=== PATIENT | male | born 1980 | race Hispanic/Latino ===

== ENCOUNTER 2016-11-22 17:10 | Emergency (ER) | payer MEDICAID ==
[2016-11-22 17:17] VITALS: RESP 20; TEMP 98.4; O2SAT 98
--- NOTE | 2016-11-22 19:11 | ED PDOC ---
HPI: General Adult Time Seen by Provider: 11/22/16 17:19 Chief Complaint (Nursing): Anxiety Chief Complaint (Provider): crisis History Per: Patient Additional Complaint(s): pt. into ER via EMS c/o anxiety and depression. states he is having issues at home. denies any suicidal/homicidal ideations. Past Medical History Reviewed: Historical Data, Nursing Documentation, Vital Signs Vital Signs: Last Vital Signs Temp 98.4 F 11/22/16 17:15 Pulse 110 H 11/22/16 17:15 Resp 20 11/22/16 17:15 BP 163/99 H 11/22/16 17:15 Pulse Ox 98 11/22/16 19:11 - Medical History PMH: Anxiety Denies: Diabetes, Hepatitis, HIV, HTN, Chronic Kidney Disease, Seizures, Sexually Transmitted Disease - Family History Family History: States: No Known Family Hx - Social History Current smoker - smoking cessation education provided: Yes Alcohol: Social Drugs: Denies - Allergies Allergies/Adverse Reactions: Allergies Allergy/AdvReac Type Severity Reaction Status Date / Time No Known Allergies Allergy Verified 11/22/16 17:14 Review of Systems ROS Statement: Except As Marked, All Systems Reviewed And Found Negative Psych: Positive for: Anxiety, Depression Physical Exam - Reviewed Nursing Documentation Reviewed: Yes Vital Signs Reviewed: Yes - Physical Exam Appears: Positive for: Well, Non-toxic, No Acute Distress Head Exam: Positive for: ATRAUMATIC, NORMAL INSPECTION, NORMOCEPHALIC Skin: Positive for: Normal Color, Warm, DRY Eye Exam: Positive for: EOMI, Normal appearance, PERRL Neck: Positive for: Normal, Painless ROM Cardiovascular/Chest: Positive for: Regular Rate, Rhythm Respiratory: Positive for: CNT, Normal Breath Sounds Gastrointestinal/Abdominal: Positive for: Normal Exam, Bowel Sounds, Soft. Negative for: Tenderness Extremity: Positive for: Normal ROM. Negative for: Tenderness Neurologic/Psych: Positive for: Alert, Oriented. Negative for: Motor/Sensory Deficits - ECG O2 Sat by Pulse Oximetry: 98 Medical Decision Making Medical Decision Making: pt seen and evaluated by telephone sex worker. ok for discharge. ED OBSERVATION Date of observation admission: 11/22/16 Time of observation admission: 19:11 - Observation admission statement Patient is being placed in observation because:: crisis - Goals of Observation Goals of observation are:: evaluation Disposition - Clinical Impression Clinical Impression: Anxiety attack - Patient ED Disposition Is Patient to be Admitted: No - Disposition Referrals: [facility] [Outside] Disposition: Routine/Home Disposition Time: 20:07 Condition: GOOD Instructions: Anxiety (ED)
[2016-11-22 20:31] VITALS: BP 143/87; PULSE 90
== END 2016-11-22 20:27 | disposition home or self-care (01) ==
LOC: H.ER 17:10
DX: F41.0 Panic disorder [episodic paroxysmal anxiety] (principal); F17.200 Nicotine dependence, unspecified, uncomplicated

== ENCOUNTER 2016-11-24 01:13 | Observation (INO) | payer MEDICAID ==
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
[2016-11-24 06:09] LABS: BASO # 0.1 K/uL (0.0-0.2); BASO % 0.7 % (0.0-2.0); EOS % 0.1 % (0.0-4.0); HEMATOCRIT 46.3 % (35.0-51.0); LYMPH # 1.3 K/uL (1.0-4.3); LYMPH % 13.2 % (20.0-40.0); MEAN CELL VOLUME 94.5 fl (80.0-94.0); MEAN CORPUSCULAR HEMOGLOBIN 31.3 pg (27.0-31.0); MEAN CORPUSCULAR HGB CONC 33.1 g/dL (33.0-37.0); MEAN PLATELET VOLUME 9.1 fl (7.2-11.7); MONO # 0.8 K/uL (0.0-0.8); MONO % 8.2 % (0.0-10.0); NEUT # 7.5 K/uL (1.8-7.0); NEUT % 77.8 % (50.0-75.0); RED CELL DISTRIBUTION WIDTH 12.7 % (11.5-14.5); WHITE BLOOD COUNT 9.6 K/uL (4.8-10.8)
--- NOTE | 2016-11-24 06:16 | ED PDOC ---
- Laboratory Results Result Diagrams: 11/24/16 05:58 11/24/16 05:58 - ECG O2 Sat by Pulse Oximetry: 98 Medical Decision Making Medical Decision Making: Patient s/o from Sherly Yepez PA-C at 0600 pending [facility] screening. Patient s/o to Dr. Connell at 0700 pending medical clearance for [facility] screening. Scribe Attestation: Documented by Lala Hancock acting as a scribe for Vianney Lea MD. Provider Scribe Attestation: All medical record entries made by the Scribe were at my direction and personally dictated by me. I have reviewed the chart and agree that the record accurately reflects my personal performance of the history, physical exam, medical decision making, and the department course for this patient. I have also personally directed, reviewed, and agree with the discharge instructions and disposition. Disposition - Clinical Impression Clinical Impression: Suicidal ideation - POA Present On Arrival: None - Disposition Disposition: Transfer of Care Disposition Time: 07:00 Condition: STABLE Patient Signed Over To: Marcus Connell Handoff Comments: pendingmed clearance and [facility] screening
[2016-11-24 06:21] LABS: ALB/GLOB RATIO 1.3 (1.0-2.1); ALCOHOL SERUM < 10 mg/dl (0-10); ALKALINE PHOSPHATASE 78 U/L (38-126); ALT/SGPT 50 U/L (21-72); AST/SGOT 117 U/L (17-59); BLOOD UREA NITROGEN 17 mg/dl (9-20); CARBON DIOXIDE 14 mmol/L (22-30); CHLORIDE 101 mmol/L (98-107); GFR AFRICAN-AMERICAN > 60; GLUCOSE,RANDOM 186 mg/dL (75-110); POTASSIUM 3.6 MMOL/L (3.6-5.0); SODIUM 144 mmol/l (132-148); TOTAL PROTEIN 8.6 G/DL (6.3-8.2)
[2016-11-24] MEDS ORDERED: Sodium Chloride 0.9% 1,000 ML IV STA ×2 (06:59→08:10)
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
[2016-11-24 07:14] LABS: GRANULAR CAST 1 /lpf (0-1); RBC URINE 2 /hpf (0-3); URINE BACTERIA RARE (<OCC); URINE BILIRUBIN NEGATIVE (NEGATIVE); URINE BLOOD NEGATIVE (NEGATIVE); URINE COLOR YELLOW (YELLOW); URINE GLUCOSE (UA) NEG (Normal); URINE KETONE TRACE mg/dL (NEGATIVE); URINE LEUKOCYTE ESTERASE NEG Leu/uL (Negative); URINE PROTEIN 100 mg/dL (NEGATIVE); URINE UROBILINOGEN 0.2-1.0 mg/dL (0.2-1.0); WBC URINE 5 /hpf (0-5)
--- NOTE | 2016-11-24 11:10 | RAD ---
HISTORY: clearance COMPARISON: 12/21/2015 FINDINGS: LUNGS: The lungs are well inflated and clear. PLEURA: No significant pleural effusion identified, no pneumothorax apparent. CARDIOVASCULAR: Normal. OSSEOUS STRUCTURES: No significant abnormalities. VISUALIZED UPPER ABDOMEN: Normal. OTHER FINDINGS: None. IMPRESSION: No active pulmonary disease.
[2016-11-24] MEDS: Sodium Chloride 0.9% 1,000 ML IV SCH ×2 (14:35→21:54)
--- NOTE | 2016-11-24 19:23 | CARD ---
APPROVED REPORT EKG Measurement Heart [id number] <Conclusion> Sinus tachycardia with short WA Left axis deviation Abnormal ECG
--- NOTE | 2016-11-24 19:47 | CP.PCM.CON ---
History of Present Illness - History of Present Illness History of Present Illness: I was asked to see patient by Vadim Melton APN and Dr Sidhu Patient is a 36 year old male with PMH psychiatric disorder admitted for palptitations. Patient is in the midst of a divorce and had a breakdown. He was to be admitted to psychiatry, patient was found to be tachycardic. He is seen on [facility]N. He is upset about his current situation but his outlook seems positive. Review of Systems - Constitutional Constitutional: absent: As Per HPI, Anorexia, Chills, Daytime Sleepiness, Excessive Sweating, Fatigue, Fever, Frequent Falls, Headache, Increased Appetite , Lethargy, Malaise, Night Sweats, Snoring, Sleep Apnea, Weight Gain, Weight Loss, Weakness, Other - EENT Eyes: absent: As Per HPI, Blind Spots, Blurred Vision, Change in Vision, Decreased Night Vision, Diplopia, Discharge, Dry Eye, Exophthalmos, Floaters, Irritation, Itchy Eyes, Loss of Peripheral Vision, Pain, Photophobia, Requires Corrective Lenses, Sees Flashes, Spots in Vision, Tunnel Vision, Other Visual Disturbances, Loss of Vision, Other Nose/Mouth/Throat: absent: As Per HPI, Epistaxis, Nasal Congestion, Nasal Discharge, Nasal Obstruction, Nasal Trauma, Nose Pain, Post Nasal Drip, Sinus Pain, Sinus Pressure, Bleeding Gums, Change in Voice, Dental Pain, Dry Mouth, Dysphagia, Halitosis, Hoarsness, Lip Swelling, Mouth Lesions, Mouth Pain, Odynophagia, Sore Throat, Throat Swelling, Tongue Swelling, Facial Pain, Neck Pain, Neck Mass, Other - Cardiovascular Cardiovascular: Rapid Heart Rate - Respiratory Respiratory: absent: As Per HPI, Cough, Dyspnea, Hemoptysis, Dyspnea on Exertion , Wheezing, Snoring, Stridor, Pain on Inspiration, Chest Congestion, Excessive Mucous Production, Change in Mucous Color, Pain with Coughing, Other - Gastrointestinal Gastrointestinal: absent: As Per HPI, Abdominal Pain, Belching, Bloating, Change in Bowel Habits, Change in Stool Character, Coffee Ground Emesis, Constipation, Cramping, Diarrhea, Dyspepsia, Dysphagia, Early Satiety, Excessive Flatus, Fecal Incontinence, Heartburn, Hematemesis, Hematochezia, Loose Stools, Melena, Nausea, Odynophagia, Temesmus, Vomiting, Other - Genitourinary Genitourinary: absent: As Per HPI, Change in Urinary Stream, Difficulty Urinating, Dysuria, Flank Pain, Hematuria, Pyuria, Nocturia, Urinary Incontinence, Urinary Frequency, Urinary Hesitance, Urinary Urgency, Voiding Freq/Small Amts, Freq UTI, Hx Renal/Bladder Calculi, Hx /Renal Surgery, Bladder Distension, Other - Musculoskeletal Musculoskeletal: absent: As Per HPI, Abnormal Gait, Arthralgias, Atrophy, Back Pain, Deformity, Joint Swelling, Limited Range of Motion, Loss of Height, Muscle Cramps, Muscle Weakness, Myalgias, Neck Pain, Numbness, Radiating Pain into Limb, Stiffness, Tingling, Other - Integumentary Integumentary: absent: As Per HPI, Acne, Alopecia, Bleeding Lesions, Change in Hair, Change in Nails, Change in Pigmentation, Changing Lesions, Dry Skin, Erythema, Furuncle, Hirsutism, Lesions, New Lesions, Non-Healing Lesions, Photosensitivity, Pruritus, Rash, Skin Pain, Skin Ulcer, Sores, Striae, Swelling , Unusual Bruising, Wounds, Jaundice, Other - Neurological Neurological: absent: As Per HPI, Abnormal Gait, Abnormal Hearing, Abnormal Movements, Abnormal Speech, Behavioral Changes, Burning Sensations, Confusion, Convulsions, Disequilibrium, Dizziness, Numbness, Focal Weakness, Frequent Falls , Headaches, Lack of Coordination, Loss of Vision, Memory Loss, Paresthesias, Radicular Pain, Restless Legs, Sensory Deficit, Syncope, Tingling, Tremor, Vertigo, Weakness, Other Visual Disturbances, Other - Psychiatric Psychiatric: Panic Attacks - Endocrine Endocrine: absent: As Per HPI, Change in Body Appearance, Change in Libido, Cold Intolorance, Deepening of Voice, Excessive Sweating, Fatigue, Flushing, Heat Intolorance, Increase in Ring/Shoe/Hat Size, Palpitations, Polydipsia, Polyphagia, Polyuria, Other - Hematologic/Lymphatic Hematologic: absent: As Per HPI, Easy Bleeding, Easy Bruising, Lymphadenopathy, Other Past Patient History - Infectious Disease Hx of Infectious Diseases: None - Past Medical History & Family History Past Medical History?: Yes - Past Social History Smoking Status: Light Smoker < 10 Cigarettes Daily - CARDIAC Hx Cardiac Disorders: No - PULMONARY Hx Respiratory Disorders: No - NEUROLOGICAL Hx Neurological Disorder: No - HEENT Hx HEENT Problems: No - RENAL Hx Chronic Kidney Disease: No - ENDOCRINE/METABOLIC Hx Endocrine Disorders: No - HEMATOLOGICAL/ONCOLOGICAL Hx Blood Disorders: No - INTEGUMENTARY Hx Dermatological Problems: No - MUSCULOSKELETAL/RHEUMATOLOGICAL Hx Musculoskeletal Disorders: No Hx Falls: No - GASTROINTESTINAL Hx Gastrointestinal Disorders: No - GENITOURINARY/GYNECOLOGICAL Hx Genitourinary Disorders: No - PSYCHIATRIC Hx Psychophysiologic Disorder: Yes Hx Depression: Yes Hx Substance Use: Yes - SURGICAL HISTORY Hx Surgeries: No - ANESTHESIA Hx Anesthesia: No Meds Allergies/Adverse Reactions: Allergies Allergy/AdvReac Type Severity Reaction Status Date / Time No Known Allergies Allergy Verified 11/22/16 17:14 - Medications Medications: Current Medications Sodium Chloride (Sodium Chloride 0.9%) 1,000 mls @ 125 mls/hr IV .[facility] Stop: 11/25/16 14:31 Last Admin: 11/24/16 14:35 Dose: 125 mls/hr Quetiapine Fumarate (Seroquel) 50 mg PO DAILY [facility] Last Admin: 11/24/16 18:38 Dose: 50 mg Physical Exam - Constitutional Appears: Non-toxic - Head Exam Head Exam: NORMAL INSPECTION - Eye Exam Eye Exam: Normal appearance - ENT Exam ENT Exam: Mucous Membranes Moist - Neck Exam Neck exam: Positive for: Normal Inspection - Respiratory Exam Respiratory Exam: NORMAL BREATHING PATTERN - Cardiovascular Exam Cardiovascular Exam: Tachycardia, REGULAR RHYTHM - GI/Abdominal Exam GI & Abdominal Exam: Normal Bowel Sounds - Rectal Exam Rectal Exam: Deferred - Extremities Exam Extremities exam: Positive for: normal inspection - Back Exam Back exam: NORMAL INSPECTION - Neurological Exam Neurological exam: Alert, Oriented x3 - Psychiatric Exam Psychiatric exam: Normal Affect - Skin Skin Exam: Normal Color Results - Vital Signs Recent Vital Signs: Last Vital Signs Temp 98.2 F 11/24/16 16:00 Pulse 108 H 11/24/16 16:03 Resp 18 11/24/16 16:03 BP 135/83 11/24/16 16:00 Pulse Ox 99 11/24/16 16:00 - Labs Result Diagrams: 11/25/16 07:00 11/25/16 07:00 - EKG Data EKG Interpreted by: Myself Assessment & Plan (1) Tachycardia Assessment and Plan: sinus, likely due to underlying stress. Improved with IV fluids. otherwise normal cardiac exam. Doubt underlying cardiac pathology. can check TSH. Status: Acute
[2016-11-25 04:27] VITALS: RESP 18
[2016-11-25] MEDS: Sodium Chloride 0.9% 1,000 ML IV SCH (06:06)
[2016-11-25 07:49] LABS: BASO % 0.8 % (0.0-2.0); EOS # 0.1 K/uL (0.0-0.7); EOS % 1.1 % (0.0-4.0); HEMATOCRIT 40.5 % (35.0-51.0); LYMPH # 1.8 K/uL (1.0-4.3); LYMPH % 30.9 % (20.0-40.0); MEAN CELL VOLUME 94.2 fl (80.0-94.0); MEAN CORPUSCULAR HEMOGLOBIN 30.9 pg (27.0-31.0); MEAN CORPUSCULAR HGB CONC 32.8 g/dL (33.0-37.0); MEAN PLATELET VOLUME 9.2 fl (7.2-11.7); MONO # 0.8 K/uL (0.0-0.8); MONO % 14.2 % (0.0-10.0); NEUT # 3.2 K/uL (1.8-7.0); RED CELL DISTRIBUTION WIDTH 12.7 % (11.5-14.5)
[2016-11-25 08:04] LABS: ALB/GLOB RATIO 1.3 (1.0-2.1); ALKALINE PHOSPHATASE 61 U/L (38-126); ALT/SGPT 57 U/L (21-72); AST/SGOT 130 U/L (17-59); BILIRUBIN,TOTAL 1.5 mg/dl (0.2-1.3); BLOOD UREA NITROGEN 10 mg/dl (9-20); CALCIUM 9.1 mg/dL (8.4-10.2); CARBON DIOXIDE 25 mmol/L (22-30); CHLORIDE 108 mmol/L (98-107); GFR AFRICAN-AMERICAN > 60; GLUCOSE,RANDOM 94 mg/dL (75-110); SODIUM 144 mmol/l (132-148); TOTAL PROTEIN 6.8 G/DL (6.3-8.2)
[2016-11-25 08:07] VITALS: BP 121/68; PULSE 73; TEMP 98.2; O2SAT 97
[2016-11-25 08:28] LABS: THYROID STIMULATING HORMONE 0.83 mIU/ML (0.46-4.68)
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
--- NOTE | 2016-11-25 10:12 | CP.PCM.DIS ---
Provider - Provider Date of Admission: 11/24/16 12:19 Attending physician: Jasmin Sidhu MD Primary care physician: Shady Morris MD Time Spent in preparation of Discharge (in minutes): 15 Hospital Course - Lab Results Lab Results: Most Recent Lab Values WBC 6.0 K/uL (4.8-10.8) 11/25/16 07:00 RBC 4.30 Mil/uL (4.40-5.90) L 11/25/16 07:00 Hgb 13.3 g/dL (12.0-18.0) D 11/25/16 07:00 Hct 40.5 % (35.0-51.0) 11/25/16 07:00 MCV 94.2 fl (80.0-94.0) H 11/25/16 07:00 MCH 30.9 pg (27.0-31.0) 11/25/16 07:00 MCHC 32.8 g/dL (33.0-37.0) L 11/25/16 07:00 RDW 12.7 % (11.5-14.5) 11/25/16 07:00 Plt Count 232 K/uL (130-400) 11/25/16 07:00 MPV 9.2 fl (7.2-11.7) 11/25/16 07:00 Neut % (Auto) 53.0 % (50.0-75.0) 11/25/16 07:00 Lymph % (Auto) 30.9 % (20.0-40.0) 11/25/16 07:00 [place] % (Auto) 14.2 % (0.0-10.0) H 11/25/16 07:00 Eos % (Auto) 1.1 % (0.0-4.0) 11/25/16 07:00 Baso % (Auto) 0.8 % (0.0-2.0) 11/25/16 07:00 Neut # 3.2 K/uL (1.8-7.0) 11/25/16 07:00 Lymph # 1.8 K/uL (1.0-4.3) 11/25/16 07:00 [place] # 0.8 K/uL (0.0-0.8) 11/25/16 07:00 Eos # 0.1 K/uL (0.0-0.7) 11/25/16 07:00 Baso # 0.0 K/uL (0.0-0.2) 11/25/16 07:00 Sodium 144 mmol/l (132-148) 11/25/16 07:00 Potassium 4.0 MMOL/L (3.6-5.0) 11/25/16 07:00 Chloride 108 mmol/L (98-107) H 11/25/16 07:00 Carbon Dioxide 25 mmol/L (22-30) 11/25/16 07:00 Anion Gap 15 (10-20) 11/25/16 07:00 BUN 10 mg/dl (9-20) 11/25/16 07:00 Creatinine 0.9 mg/dL (0.8-1.5) 11/25/16 07:00 Est GFR ( Amer) > 60 11/25/16 07:00 Est GFR (Non-Af Amer) > 60 11/25/16 07:00 Random Glucose 94 mg/dL (75-110) 11/25/16 07:00 Calcium 9.1 mg/dL (8.4-10.2) 11/25/16 07:00 Total Bilirubin 1.5 mg/dl (0.2-1.3) H 11/25/16 07:00 AST 130 U/L (17-59) H 11/25/16 07:00 ALT 57 U/L (21-72) 11/25/16 07:00 Alkaline Phosphatase 61 U/L (38-126) 11/25/16 07:00 Total Protein 6.8 G/DL (6.3-8.2) 11/25/16 07:00 Albumin 3.8 g/dL (3.5-5.0) 11/25/16 07:00 Globulin 3.0 gm/dL (2.2-3.9) 11/25/16 07:00 Albumin/Globulin Ratio 1.3 (1.0-2.1) 11/25/16 07:00 TSH 3rd Generation 0.83 mIU/ML (0.46-4.68) 11/25/16 07:00 Urine Color Yellow (YELLOW) 11/24/16 06:33 Urine Clarity Slighty-cloudy (Clear) 11/24/16 06:33 Urine pH 6.0 (5.0-8.0) 11/24/16 06:33 Ur Specific Spencer 1.021 (1.003-1.030) 11/24/16 06:33 Urine Protein 100 mg/dL (NEGATIVE) 11/24/16 06:33 Urine Glucose (UA) Neg mg/dL (Normal) 11/24/16 06:33 Urine Ketones Trace mg/dL (NEGATIVE) 11/24/16 06:33 Urine Blood Negative (NEGATIVE) 11/24/16 06:33 Urine Nitrate Negative (NEGATIVE) 11/24/16 06:33 Urine Bilirubin Negative (NEGATIVE) 11/24/16 06:33 Urine Urobilinogen 0.2-1.0 mg/dL (0.2-1.0) 11/24/16 06:33 Ur Leukocyte Esterase Neg [place]/uL (Negative) 11/24/16 06:33 Urine RBC (Auto) 2 /hpf (0-3) 11/24/16 06:33 Urine Microscopic WBC 5 /hpf (0-5) 11/24/16 06:33 Ur Squamous Epith Cells 2 /hpf (0-5) 11/24/16 06:33 Urine Bacteria Rare (<OCC) 11/24/16 06:33 Hyaline Casts 6-10 /hpf (0-2) H 11/24/16 06:33 Granular Casts (Auto) 1 /lpf (0-1) 11/24/16 06:33 Urine Opiates Screen Negative (NEGATIVE) 11/24/16 06:33 Urine Methadone Screen Negative (NEGATIVE) 11/24/16 06:33 Ur Barbiturates Screen Negative (NEGATIVE) 11/24/16 06:33 Ur Phencyclidine Scrn Negative (NEGATIVE) 11/24/16 06:33 Ur Amphetamines Screen Negative (NEGATIVE) 11/24/16 06:33 U Benzodiazepines Scrn Negative (NEGATIVE) 11/24/16 06:33 U Oth Cocaine Metabols Negative (NEGATIVE) 11/24/16 06:33 U Cannabinoids Screen Positive (NEGATIVE) H 11/24/16 06:33 Alcohol, Quantitative < 10 mg/dl (0-10) 11/24/16 05:58 Discharge Exam - Head Exam Head Exam: NORMAL INSPECTION Discharge Plan - Follow Up Plan Condition: STABLE Disposition: HOME/ ROUTINE Instructions: Stress (ED) Additional Instructions: Follow up as directed. final dx-tachycardia due to stress f/u rmg 2 dyas, rted prn, meds per med rec, hydration, repeat cmp 1 wk, alcohol cessation cleare dby psych and cardio Referrals: Shady Morris MD [Primary Care Provider] -
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
== END 2016-11-25 11:50 | disposition home or self-care (01) ==
LOC: H.ER 01:13 → UNDOADMOB 05:41 → H.EROBSV 05:41 → H.ERHOLD 11:47 → UNDOADMOB 11:47 → H.ERHOLD 12:19 → H.TEL 15:46
PROVIDERS: ADMIT Family Medicine; ATTEND Family Medicine
DX: F43.23 Adjustment disorder with mixed anxiety and depressed mood (principal); R45.851 Suicidal ideations; R00.0 Tachycardia, unspecified; F41.0 Panic disorder [episodic paroxysmal anxiety]; F17.210 Nicotine dependence, cigarettes, uncomplicated; Z78.1 Physical restraint status

== ENCOUNTER 2016-12-01 13:31 | Inpatient (IN) | payer MEDICAID ==
[2016-12-01] MEDS ORDERED: Sodium Chloride 0.9% 1,000 ML IV STA (14:48)
--- NOTE | 2016-12-01 14:53 | ED PDOC ---
HPI: General Adult Time Seen by Provider: 12/01/16 13:35 Chief Complaint (Nursing): Psychiatric Evaluation Chief Complaint (Provider): Suicidal Ideation History Per: Patient History/Exam Limitations: no limitations Have you had recent travel within the past 21 days to any of the following countries: [place], [place], [place] or [place]?: No Current Symptoms Are (Timing): Still Present Severity: Moderate Recently: Hospitalized Additional Complaint(s): Jonnathan Russ is a 36 year old male, with a past medical history of depression and anxiety, who presents to the emergency department via EMS, with complaints of wanting to harm himself. Patient states having a panic attack that was brought on by anxiety earlier today and verbalizes suicidal ideation without a plan. He reports the route of his stress deriving from being from his 5 months ago. Denies homicidal ideation, hallucinations, chest pain, shortness of breath, leg pain, hemoptysis, or a thyroid disorder. Of note, patient was admitted to this hospital last week for similar symptoms. PMD: [place] Past Medical History Reviewed: Historical Data, Nursing Documentation, Vital Signs Vital Signs: Last Vital Signs Temp 97.8 F 12/01/16 22:30 Pulse 96 H 12/01/16 22:30 Resp 20 12/01/16 22:30 BP 128/78 12/01/16 22:30 Pulse Ox 98 12/01/16 18:00 - Medical History PMH: Anxiety, Depression Denies: Diabetes, Hepatitis, HIV, HTN, Chronic Kidney Disease, Seizures, Sexually Transmitted Disease - Surgical History Surgical History: No Surg Hx - Family History Family History: States: Unknown Family Hx - Social History Alcohol: None Drugs: Cannabis - Home Medications Home Medications: Ambulatory Orders Medication Instructions Recorded QUEtiapine [SEROquel] 100 mg PO DAILY 11/24/16 - Allergies Allergies/Adverse Reactions: Allergies Allergy/AdvReac Type Severity Reaction Status Date / Time No Known Allergies Allergy Verified 11/22/16 17:14 Review of Systems ROS Statement: Except As Marked, All Systems Reviewed And Found Negative ENT: Negative for: Other (thyroid disorder) Cardiovascular: Negative for: Chest Pain Respiratory: Negative for: Shortness of Breath, Hemoptysis Musculoskeletal: Negative for: Leg Pain Neurological: Negative for: Other (hallucinations) Psych: Positive for: Anxiety, Depression, Suicidal ideation. Negative for: Other (homicidal ideation) Physical Exam - Reviewed Nursing Documentation Reviewed: Yes Vital Signs Reviewed: Yes - Physical Exam Appears: Positive for: Non-toxic, No Acute Distress Head Exam: Positive for: ATRAUMATIC, NORMOCEPHALIC Skin: Positive for: Normal Color, Warm, Dry Eye Exam: Positive for: Normal appearance, EOMI ENT: Positive for: Normal ENT Inspection. Negative for: Pharyngeal Erythema, Tonsillar Exudate, Tonsillar Swelling Neck: Positive for: Normal, Painless ROM, Supple Cardiovascular/Chest: Positive for: Regular Rate, Rhythm, Tachycardia. Negative for: Murmur, Ectopy Respiratory: Positive for: Normal Breath Sounds. Negative for: Respiratory Distress Gastrointestinal/Abdominal: Positive for: Normal Exam, Soft. Negative for: Tenderness Back: Positive for: Normal Inspection. Negative for: L CVA Tenderness, R CVA Tenderness Extremity: Positive for: Normal ROM. Negative for: Tenderness, Swelling Neurologic/Psych: Positive for: Alert, Oriented, Mood/Affect (calm and cooperative) - Laboratory Results Result Diagrams: 12/01/16 15:05 12/01/16 15:05 - ECG ECG Rhythm: Positive for: Normal QRS, Sinus Tachycardia. Negative for: ST/T Changes Rate: 127 O2 Sat by Pulse Oximetry: 100 (RA) Pulse Ox Interpretation: Normal Medical Decision Making Medical Decision Makin:36 Initial Impression: Depression, Anxiety Initial Plan: * EKG * CBC * CMP * D Dimer * Urinalysis * Urine Drug Screen * Thyroid Stimulating Hormone * 1:1 Obs for Suicide Precaution * Crisis Evaluation * Metoprolol Tartrate 25 mg PO * Sodium Chloride 0.9% 1,000 ml IV at 1,000 mls/hr * Reevaluation Patient's records were reviewed from last visit when he was admitted for palpitations and suicidal ideation. Patient was evaluated by Dr. Herrera, a reshipping clerk, who cleared the patient from a cardiac standpoint and believed that the palpitations were not due to cardiac etiology on 11/26/2016. EKG was read, rate at 127 beats per minute without ST-T wave changes. Pt. feeling anxious and appears anxious. teletypesetter monitor: SR @ 97 bpm. DDimer elevated. CTA chest to r/o PE. CTA chest: no PE. Pt. medically cleared. Pt. evaluated by Anna CRAWFORD, and arrangements made for admission at the request of Dr. Ga. Scribe Attestation: Documented by Yoel Castillo, acting as a scribe for ANABEL Brunner. Provider Scribe Attestation: All medical record entries made by the Scribe were at my direction and personally dictated by me. I have reviewed the chart and agree that the record accurately reflects my personal performance of the history, physical exam, medical decision making, and the department course for this patient. I have also personally directed, reviewed, and agree with the discharge instructions and disposition. Disposition - Clinical Impression Clinical Impression: Anxiety, Depression, Tachycardia - Patient ED Disposition Is Patient to be Admitted: Yes - Disposition Disposition: Routine/Home Disposition Time: 21:10 Condition: STABLE
[2016-12-01 15:53] LABS: BASO # 0.1 K/uL (0.0-0.2); BASO % 0.6 % (0.0-2.0); HEMATOCRIT 45.1 % (35.0-51.0); LYMPH # 1.4 K/uL (1.0-4.3); LYMPH % 10.3 % (20.0-40.0); MEAN CELL VOLUME 93.2 fl (80.0-94.0); MEAN CORPUSCULAR HEMOGLOBIN 31.4 pg (27.0-31.0); MEAN CORPUSCULAR HGB CONC 33.7 g/dL (33.0-37.0); MEAN PLATELET VOLUME 9.3 fl (7.2-11.7); MONO # 1.6 K/uL (0.0-0.8); MONO % 11.5 % (0.0-10.0); NEUT # 10.5 K/uL (1.8-7.0); NEUT % 77.6 % (50.0-75.0); NRBC % 0.1 % (0.0-0.0); RED CELL DISTRIBUTION WIDTH 12.8 % (11.5-14.5); WHITE BLOOD COUNT 13.5 K/uL (4.8-10.8)
[2016-12-01 16:03] LABS: ALB/GLOB RATIO 1.2 (1.0-2.1); BILIRUBIN,TOTAL 1.2 mg/dl (0.2-1.3); CALCIUM 10.5 mg/dL (8.4-10.2); POTASSIUM 3.6 MMOL/L (3.6-5.0); TOTAL PROTEIN 9.3 G/DL (6.3-8.2)
[2016-12-01 16:33] LABS: THYROID STIMULATING HORMONE 1.83 mIU/ML (0.46-4.68)
[2016-12-01] MEDS ORDERED: Sodium Chloride 0.9% 50 ML IV ONE (18:51)
[2016-12-01] MEDS ORDERED: Iodixanol 320 MG/ML 100 ML BOTTLE IV ONE (18:51)
--- NOTE | 2016-12-01 19:53 | CT ---
EXAM: CT Angiography Chest With Intravenous Contrast CLINICAL HISTORY: 36 years old, male; Signs and symptoms; Tachypnea and other: Elevated d-dimer; Additional info: Tachycardic, elevated d-dimer TECHNIQUE: Axial computed tomographic angiography images of the chest with intravenous contrast using pulmonary embolism protocol. This CT exam was performed using one or more of the following dose reduction techniques: automated exposure control, adjustment of the mA and/or kV according to patient size, and/or use of iterative reconstruction technique. MIP reconstructed images were created and reviewed. Coronal and sagittal reformatted images were created and reviewed. CONTRAST: 90 mL of [id number] administered intravenously. EXAM DATE/TIME: 12/01/2016 5:31 PM COMPARISON: Prior chest radiographs of 11/24/2016 FINDINGS: PULMONARY ARTERIES: Contrast opacification of the pulmonary arteries is adequate, and there are no filling defects seen to suggest pulmonary embolism. AORTA: No evidence of aortic dissection. LUNGS: No evidence of significant focal consolidation/infiltrate in the lungs. No evidence of diffuse pulmonary vascular congestion. PLEURAL SPACE: No pneumothorax or pleural effusions seen. HEART: Left heart chambers appear mildly prominent in size. No evidence of diffuse cardiomegaly. No evidence of significant pericardial effusion. BONES/JOINTS: No acute bony abnormality identified. SOFT TISSUES: Mild bilateral gynecomastia. LYMPH NODES: No evidence of diffuse lymphadenopathy. IMPRESSION: - No evidence of pulmonary embolism or other significant acute abnormality in the chest. - See above for remaining findings.
[2016-12-01 20:03] LABS: RBC URINE 2 /hpf (0-3); URINE BILIRUBIN NEGATIVE (NEGATIVE); URINE BLOOD SMALL (NEGATIVE); URINE COLOR YELLOW (YELLOW); URINE GLUCOSE (UA) NEG (Normal); URINE KETONE NEGATIVE (NEGATIVE); URINE LEUKOCYTE ESTERASE NEG Leu/uL (Negative); URINE PROTEIN 30 mg/dL (NEGATIVE); URINE UROBILINOGEN 0.2-1.0 mg/dL (0.2-1.0); WBC URINE 1 /hpf (0-5)
[2016-12-01] MEDS ORDERED: Alum-Mag Hydrox-Simethicone Susp (30 mL) PO PRN (22:28)
[2016-12-01] MEDS ORDERED: DiphenhydrAMINE 50 mg/ml Inj IM PRN (22:28)
[2016-12-01] MEDS ORDERED: Magnesium Hydroxide Susp 30 ml UD PO PRN (22:28)
[2016-12-01 22:56] VITALS: O2SAT 100
--- NOTE | 2016-12-02 08:06 | CP.PCM.PCO ---
Physician Communication Note - Physician Communication Note Physician Communication Note: went to see pt, was asked to return in am as pt just went to sleep
[2016-12-02 09:18] VITALS: BP 144/76; PULSE 84; RESP 18; TEMP 96.6
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
--- NOTE | 2016-12-02 19:21 | CARD ---
APPROVED REPORT EKG Measurement Heart [id number] MD [id number] <Conclusion> Sinus tachycardia Possible Left atrial enlargement Left axis deviation Abnormal ECG
== END 2016-12-02 11:20 | disposition home or self-care (01) | DRG 748 ==
LOC: H.ER 13:31 → H.ERHOLD 21:30 → H.PSYCH 22:05
PROVIDERS: ADMIT Psychiatry & Neurology Psychiatry; ATTEND Psychiatry & Neurology Psychiatry
PROC: HZ32ZZZ Individual Counseling for Substance Abuse Treatment, Cognitive-Behavioral (ICD-10-PCS; principal; 2016-12-01)
DX: F19.94 Other psychoactive substance use, unspecified with psychoactive substance-induced mood disorder (principal); R45.851 Suicidal ideations; F32.9 Major depressive disorder, single episode, unspecified; I10 Essential (primary) hypertension; F41.0 Panic disorder [episodic paroxysmal anxiety]; R00.0 Tachycardia, unspecified; F12.10 Cannabis abuse, uncomplicated; F17.210 Nicotine dependence, cigarettes, uncomplicated

== ENCOUNTER 2016-12-14 16:18 | Inpatient (IN) | payer MEDICAID ==
--- NOTE | 2016-12-14 19:14 | ED PDOC ---
HPI: Psych/Substance Abuse Time Seen by Provider: 12/14/16 18:57 Chief Complaint (Nursing): Psychiatric Evaluation Chief Complaint (Provider): SI, anxiety, paranoid History Per: Patient History/Exam Limitations: no limitations Onset/Duration Of Symptoms: Days Current Symptoms Are (Timing): Still Present Additional Complaint(s): 36 yo male with history of anxiety, depression and psychosis presents with anxiety and feeling "unsafe". Pt states he is also thinking of suicide without a plan. Pt states he was taking seroquel but stopped about a week ago because it was making him tired. Pt states he was August 01 which he states has made his depression worse. Past Medical History Reviewed: Historical Data, Nursing Documentation, Vital Signs Vital Signs: Last Vital Signs Temp 98.2 F 12/14/16 16:19 Pulse 121 H 12/14/16 16:19 Resp 16 12/14/16 16:19 BP 142/96 H 12/14/16 16:19 Pulse Ox 100 12/14/16 16:19 - Medical History PMH: Depression - Surgical History Surgical History: No Surg Hx - Family History Family History: States: Unknown Family Hx - Living Arrangements Living Arrangements: Alone - Allergies Allergies/Adverse Reactions: Allergies Allergy/AdvReac Type Severity Reaction Status Date / Time No Known Allergies Allergy Verified 12/14/16 16:19 Physical Exam - Reviewed Nursing Documentation Reviewed: Yes Vital Signs Reviewed: Yes - Physical Exam Appears: Positive for: Well, Non-toxic, No Acute Distress Head Exam: Positive for: ATRAUMATIC, NORMAL INSPECTION, NORMOCEPHALIC Skin: Positive for: Normal Color, Warm, DRY Eye Exam: Positive for: Normal appearance ENT: Positive for: Normal ENT Inspection Neck: Positive for: Normal, Painless ROM Cardiovascular/Chest: Positive for: Regular Rate, Rhythm Respiratory: Positive for: CNT, Normal Breath Sounds Gastrointestinal/Abdominal: Positive for: Normal Exam, Bowel Sounds, Soft Back: Positive for: Normal Inspection Extremity: Positive for: Normal ROM Neurologic/Psych: Positive for: Alert, Oriented - Laboratory Results Result Diagrams: 12/14/16 19:45 12/14/16 19:45 - ECG O2 Sat by Pulse Oximetry: 100 Pulse Ox Interpretation: Normal Medical Decision Making Medical Decision Making: Pt refusing CT. Lungs clear to auscultation, no cough, no fever. Disposition - Clinical Impression Clinical Impression: Substance induced mood disorder - Patient ED Disposition Is Patient to be Admitted: Yes - Disposition Disposition Time: 22:48 Condition: GOOD
[2016-12-14 19:54] LABS: HEMATOCRIT 43.8 % (35.0-51.0); MEAN CELL VOLUME 94.7 fl (80.0-94.0); MEAN CORPUSCULAR HEMOGLOBIN 31.1 pg (27.0-31.0); MEAN CORPUSCULAR HGB CONC 32.8 g/dL (33.0-37.0); RED CELL DISTRIBUTION WIDTH 12.8 % (11.5-14.5); WHITE BLOOD COUNT 13.2 K/uL (4.8-10.8)
[2016-12-14 20:05] LABS: ALB/GLOB RATIO 1.3 (1.0-2.1); ALCOHOL SERUM < 10 mg/dl (0-10); ALKALINE PHOSPHATASE 83 U/L (38-126); ALT/SGPT 47 U/L (21-72); AST/SGOT 43 U/L (17-59); BILIRUBIN,TOTAL 0.9 mg/dl (0.2-1.3); BLOOD UREA NITROGEN 15 mg/dl (9-20); CALCIUM 10.4 mg/dL (8.4-10.2); CARBON DIOXIDE 25 mmol/L (22-30); CHLORIDE 105 mmol/L (98-107); GFR AFRICAN-AMERICAN > 60; GLUCOSE,RANDOM 136 mg/dL (75-110); POTASSIUM 3.6 MMOL/L (3.6-5.0); SODIUM 143 mmol/l (132-148); TOTAL PROTEIN 8.7 G/DL (6.3-8.2)
[2016-12-14 21:54] LABS: RBC URINE 7 /hpf (0-3); URINE BACTERIA RARE (<OCC); URINE BILIRUBIN NEGATIVE (NEGATIVE); URINE BLOOD NEGATIVE (NEGATIVE); URINE COLOR AMBER (YELLOW); URINE GLUCOSE (UA) NEG (Normal); URINE KETONE TRACE mg/dL (NEGATIVE); URINE LEUKOCYTE ESTERASE NEG Leu/uL (Negative); URINE PROTEIN 30 mg/dL (NEGATIVE); URINE UROBILINOGEN 0.2-1.0 mg/dL (0.2-1.0); WBC URINE 2 /hpf (0-5)
[2016-12-15 00:41] VITALS: RESP 18; O2SAT 99
[2016-12-15] MEDS ORDERED: Magnesium Hydroxide Susp 30 ml UD PO PRN (01:09)
[2016-12-15] MEDS ORDERED: DiphenhydrAMINE 50 mg/ml Inj IM PRN (01:09)
[2016-12-15] MEDS ORDERED: Alum-Mag Hydrox-Simethicone Susp (30 mL) PO PRN (01:09)
[2016-12-15 08:28] LABS: T4 9.27 ug/dl (5.5-11.0)
[2016-12-15 08:42] LABS: THYROID STIMULATING HORMONE 1.68 mIU/ML (0.46-4.68)
--- NOTE | 2016-12-15 09:44 | CP.PCM.CON ---
History of Present Illness - History of Present Illness History of Present Illness: 36 yo male with history of anxiety, depression and psychosis presents with anxiety and feeling "unsafe". Pt states he is also thinking of suicide without a plan. Pt states he was taking seroquel but stopped about a week ago because it was making him tired. Pt states he was August 01 which he states has made his depression worse. Past Patient History - Past Social History Smoking Status: Heavy Smoker > 10 Cigarettes Daily - CARDIAC Hx Cardiac Disorders: No - PULMONARY Hx Respiratory Disorders: No - NEUROLOGICAL Hx Neurological Disorder: No - HEENT Hx HEENT Problems: No - RENAL Hx Chronic Kidney Disease: No - ENDOCRINE/METABOLIC Hx Endocrine Disorders: No - HEMATOLOGICAL/ONCOLOGICAL Hx Blood Disorders: No - INTEGUMENTARY Hx Dermatological Problems: No - MUSCULOSKELETAL/RHEUMATOLOGICAL Hx Musculoskeletal Disorders: No - GASTROINTESTINAL Hx Gastrointestinal Disorders: No - GENITOURINARY/GYNECOLOGICAL Hx Genitourinary Disorders: No - PSYCHIATRIC Hx Substance Use: Yes (marijuana) - SURGICAL HISTORY Hx Surgeries: No - ANESTHESIA Hx Anesthesia: No Hx Anesthesia Reactions: No Hx Malignant Hyperthermia: No Has any member of the family had a problem w/ anesthesia?: No Meds Allergies/Adverse Reactions: Allergies Allergy/AdvReac Type Severity Reaction Status Date / Time No Known Allergies Allergy Verified 12/14/16 16:19 - Medications Medications: Current Medications Acetaminophen (Tylenol 325mg Tab) 650 mg PO Q4 PRN PRN Reason: Pain, moderate (4-7) Al Hydrox/Mg Hydrox/Simethicone (Maalox Plus 30 Ml) 30 ml PO Q4 PRN PRN Reason: Dyspepsia Diphenhydramine HCl (Benadryl) 50 mg IM Q6 PRN PRN Reason: Extrapyramidal S/S Unable PO Diphenhydramine HCl (Benadryl) 50 mg PO Q6 PRN PRN Reason: Extrapyramidal Symptoms Diphenhydramine HCl (Benadryl) 50 mg PO HS PRN PRN Reason: Sleep Last Admin: 12/15/16 02:30 Dose: 50 mg Haloperidol (Haldol) 5 mg PO Q4 PRN PRN Reason: Agitation Haloperidol Lactate (Haldol) 5 mg IM Q4 PRN PRN Reason: Agitation, Unable to Take PO Lorazepam (Ativan) 2 mg IM Q4 PRN PRN Reason: Anxiety/Agitation,Unable PO Lorazepam (Ativan) 2 mg PO Q4 PRN PRN Reason: Anxiety/Agitation Last Admin: 12/15/16 07:02 Dose: 2 mg Magnesium Hydroxide (Milk Of Magnesia) 30 ml PO HS PRN PRN Reason: Constipation Results - Vital Signs Recent Vital Signs: Last Vital Signs Temp 98.7 F 12/15/16 00:42 Pulse 90 12/15/16 01:03 Resp 18 12/15/16 01:03 BP 132/90 12/15/16 00:42 Pulse Ox 99 12/15/16 00:41 - Labs Result Diagrams: 12/14/16 19:45 12/14/16 19:45 Labs: Laboratory Results - last 24 hr 12/15/16 07:43 Triglycerides 51 Cholesterol 182 LDL Cholesterol Direct 88 HDL Cholesterol 68 Thyroxine (T4) 9.27 TSH 3rd Generation 1.68
--- NOTE | 2016-12-15 11:28 | PCM.PSYCH ---
Initial Psychiatric Evaluation - Initial Psychiatric Evaluation Type of Admission: Voluntary Legal Status: Capacity Chief Complaint (in patient's own words): i had a panic attack Patient's Reaction to Hospitalization: cooperative History of Present Illness and Precipitating Events: pt has a history of previous brief admission. he gets treatment at [facility]. he has mood dysregulation since a breakup with his . they still share a home and have 3 children together. pt came to er feeling anxious, overwhelmed and paniced. he denies any a/v hallucinations. he denies any suicidal or homicidal thoughts. he wants to leave the hospital. Current Medications: Active Medications Generic Name Dose Route Start Last Admin Trade Name Freq PRN Reason Stop Dose Admin Acetaminophen 650 mg 12/15/16 01:09 Tylenol 325mg Tab PO Q4 PRN Pain, moderate (4-7) Al Hydrox/Mg Hydrox/Simethicone 30 ml 12/15/16 01:09 Maalox Plus 30 Ml PO Q4 PRN Dyspepsia Diphenhydramine HCl 50 mg 12/15/16 01:09 Benadryl IM Q6 PRN Extrapyramidal S/S Unable PO Diphenhydramine HCl 50 mg 12/15/16 01:09 Benadryl PO Q6 PRN Extrapyramidal Symptoms Diphenhydramine HCl 50 mg 12/15/16 01:15 12/15/16 02:30 Benadryl PO 50 mg HS PRN Administration Sleep Haloperidol 5 mg 12/15/16 01:09 Haldol PO Q4 PRN Agitation Haloperidol Lactate 5 mg 12/15/16 01:09 Haldol IM Q4 PRN Agitation, Unable to Take PO Lorazepam 2 mg 12/15/16 01:09 Ativan IM Q4 PRN Anxiety/Agitation,Unable PO Lorazepam 2 mg 12/15/16 01:09 12/15/16 07:02 Ativan PO 2 mg Q4 PRN Administration Anxiety/Agitation Magnesium Hydroxide 30 ml 12/15/16 01:09 Milk Of Magnesia PO HS PRN Constipation states his doctor stopped his seroquel Past Psychiatric History - Past Psychiatric History Previous Treatment History: Inpatient Prior Professional Help: dr cobb at [place] History of Abuse: denies History of ETOH/Drug Use: smokes mj, denies other substance use History of Family Illness: denies Pertinent Medical Hx (Current Medical&Sleep Prob, Allergies): Allergies Allergy/AdvReac Type Severity Reaction Status Date / Time No Known Allergies Allergy Verified 12/14/16 16:19 No Known Home Med 12/15/16 Review of Systems - Psychiatric Psychiatric: As Per HPI Mental Status Examination - Personal Presentation Personal Presentation: Looks stated age Additional comments: tattoos - Affect Affect: Broad - Motor Activity Motor Activity: Calm - Reliability in Providing Information Reliability in Providing Information: Good - Speech Speech: Organized - Mood Mood: Anxious - Formal Thought Process Formal Thought Process: No Impairment - Obsessions/Compulsions Obsessions: No Compulsions: No - Cognitive Functions Orientation: Person, Place, Situation, Time Sensorium: Alert Attention/Concentration: Attentive Abstract Thinking: [place] Estimate of Intelligence: Average Judgement: Intact, as evidence by: Insight regarding need for hospitalization Memory: Recent intact, as evidence by: Ability to recall events of the day, Remote intact, as evidenced by: Ability to recall historical events - Risk Risk: Suicidal (denies any thoughts, no prior attempts), Diminished functioning - Strength & Assets Inventory Strength & Assets Inventory: Intelligence, Employment history, Life experience - Limitations Limitations: Other (recent divorce) DSM 5 DX - DSM 5 DSM 5 Diagnosis: mood disorder unspecified panic disorder r/o adjustment disorder with mixed depression and anxiety cannabis abuse - Recommended/Plan of Treatment Treatment Recommendations and Plan of Treatment: pt will be discharged will return to outpt providers will be given information about high focus programs and this program was recommended to pt as he may benefit from an iop pt encouraged to abstain from alcohol, tobacco or other illicit substances encouraged to call 11 if any suicidal or homicidal thoughts. Projected ELOS: 1 day Prognosis: fair - Smoking Cessation Smoking Cessation Initiated: No Reason for not providing: declines
[2016-12-15 11:29] VITALS: BP 127/54; PULSE 75; TEMP 97.5
--- NOTE | 2016-12-15 11:36 | PCM.PYCHDC ---
Mental Status Examination - Mental Status Examination Suicidal Ideation: No Current Homicidal Ideation?: No Plan: pt denies any suicidal or homicidal thoughts see assessment mse for details. Discharge Summary - Discharge Note Reason for Hospitalization: pt expressed panic/passive suicidal thoughts on admission Psychiatric History (includes Medical, Family, Personal Hx): no previous symptoms until recently. one hospitalization Laboratory Data: Abnormal Lab Results 12/15/16 07:43 Triglycerides 51 Cholesterol 182 LDL Cholesterol Direct 88 HDL Cholesterol 68 Thyroxine (T4) 9.27 TSH 3rd Generation 1.68 Consultations:: List each consultation separately and include: 1. Reason for request. 2. Findings. 3. Follow-up Consultations: seen by hospitalist Summary of Hospital Course include:: 1. Description of specific treatment plan utilized for patients during their course of treatmen. 2. Summarize the time- course for resolution of acute symptoms and/or regressed behaviors. 3. Describe issues identified and worked on during hospitalization. 4. Describe medication utilized. 5. Describe medical problems identified and treated. 6. Reassessment of suicide risk Summary of Hospital Course: pt has a history of previous brief admission. he gets treatment at [facility]. he has mood dysregulation since a breakup with his . they still share a home and have 3 children together. pt came to er feeling anxious, overwhelmed and paniced. he denies any a/v hallucinations. he denies any suicidal or homicidal thoughts. he wants to leave the hospital. he was visible in milieu, joking with peers and staff and stating he would kick down the doors if not discharged. he did not want to be in the hospital and did not want to take medications. - Final Diagnosis (DSM 5) Condition upon Discharge: GOOD DSM 5: mood disorder unspecified cannabis abuse Disposition: HOME/ ROUTINE Follow-up Treatment Plan: pt will be discharged will return to outpt providers will be given information about high focus programs and this program was recommended to pt as he may benefit from an iop pt encouraged to abstain from alcohol, tobacco or other illicit substances encouraged to call 11 if any suicidal or homicidal thoughts. - Smoking Cessation Smoking Cessation Medication prescribed: No Reason for not providing: declined - Antipsychotic Medications Pt discharged on 2 or more routine antipsychotic medications: No
== END 2016-12-15 11:45 | disposition home or self-care (01) | DRG 430 ==
LOC: H.ER 16:18 → MERGE 22:42 → H.ERHOLD 22:42 → H.PSYCH 12-15 00:56
PROVIDERS: ADMIT Psychiatry & Neurology Psychiatry; ATTEND Psychiatry & Neurology Psychiatry
PROC: GZHZZZZ Group Psychotherapy (ICD-10-PCS; principal; 2016-12-14)
DX: F39 Unspecified mood [affective] disorder (principal); R45.851 Suicidal ideations; F12.10 Cannabis abuse, uncomplicated

== ENCOUNTER 2016-12-16 08:29 | Emergency (ER) | payer MEDICAID ==
[2016-12-16 09:06] VITALS: BMI 25.8
[2016-12-16 09:19] VITALS: TEMP 98.2
[2016-12-16 09:28] VITALS: BP 170/120; PULSE 100; RESP 20; O2SAT 99
[2016-12-16 09:43] LABS: BASO # 0.1 K/uL (0.0-0.2); BASO % 0.6 % (0.0-2.0); EOS % 0.1 % (0.0-4.0); HEMATOCRIT 43.2 % (35.0-51.0); LYMPH # 2.4 K/uL (1.0-4.3); LYMPH % 17.4 % (20.0-40.0); MEAN CELL VOLUME 94.4 fl (80.0-94.0); MEAN CORPUSCULAR HEMOGLOBIN 31.6 pg (27.0-31.0); MEAN CORPUSCULAR HGB CONC 33.5 g/dL (33.0-37.0); MEAN PLATELET VOLUME 8.7 fl (7.2-11.7); MONO # 1.6 K/uL (0.0-0.8); MONO % 11.5 % (0.0-10.0); NEUT # 9.8 K/uL (1.8-7.0); NEUT % 70.4 % (50.0-75.0); NRBC % 0.2 % (0.0-0.0); RED CELL DISTRIBUTION WIDTH 12.7 % (11.5-14.5); WHITE BLOOD COUNT 13.9 K/uL (4.8-10.8)
[2016-12-16 09:52] LABS: ALB/GLOB RATIO 1.2 (1.0-2.1); ALCOHOL SERUM < 10 mg/dl (0-10); ALKALINE PHOSPHATASE 73 U/L (38-126); ALT/SGPT 53 U/L (21-72); AST/SGOT 75 U/L (17-59); BLOOD UREA NITROGEN 18 mg/dl (9-20); CALCIUM 10.3 mg/dL (8.4-10.2); CARBON DIOXIDE 23 mmol/L (22-30); CHLORIDE 103 mmol/L (98-107); GFR AFRICAN-AMERICAN 60; GLUCOSE,RANDOM 134 mg/dL (75-110); POTASSIUM 3.6 MMOL/L (3.6-5.0); SODIUM 141 mmol/l (132-148); TOTAL PROTEIN 8.9 G/DL (6.3-8.2)
--- NOTE | 2016-12-16 11:07 | ED PDOC ---
- Laboratory Results Result Diagrams: 12/16/16 09:28 12/16/16 09:28 - ECG O2 Sat by Pulse Oximetry: 99 Disposition Doctor Will See Patient In The: Office Counseled Patient/Family Regarding: Diagnosis, Need For Followup - Clinical Impression Clinical Impression: Substance induced mood disorder - POA Present On Arrival: None - Disposition
--- NOTE | 2016-12-16 11:25 | ED PDOC ---
HPI: Psych/Substance Abuse Time Seen by Provider: 12/16/16 09:02 Chief Complaint (Nursing): Anxiety History Per: Other (patient brought by EMS because of agitation. Patient has h/ o substance abuse. ) Past Medical History Reviewed: Historical Data, Nursing Documentation, Vital Signs Vital Signs: Last Vital Signs Temp 98.2 F 12/16/16 08:38 Pulse 100 H 12/16/16 08:38 Resp 20 12/16/16 08:38 BP 170/120 H 12/16/16 08:38 Pulse Ox 99 12/16/16 08:38 - Medical History PMH: Anxiety, Depression Denies: Diabetes, Hepatitis, HIV, HTN, Chronic Kidney Disease, Seizures, Sexually Transmitted Disease - Surgical History Surgical History: No Surg Hx - Family History Family History: States: Unknown Family Hx - Home Medications Home Medications: Ambulatory Orders Medication Instructions Recorded No Known Home Med 12/15/16 - Allergies Allergies/Adverse Reactions: Allergies Allergy/AdvReac Type Severity Reaction Status Date / Time No Known Allergies Allergy Verified 12/14/16 16:19 Review of Systems Review Of Systems: ROS cannot be obtained secondary to pt's inabilty to answer questions. Physical Exam - Reviewed Nursing Documentation Reviewed: Yes Vital Signs Reviewed: Yes - Physical Exam Appears: Positive for: Well, Non-toxic, No Acute Distress Head Exam: Positive for: ATRAUMATIC, NORMAL INSPECTION, NORMOCEPHALIC Skin: Positive for: Normal Color, Warm, DRY Eye Exam: Positive for: EOMI, Normal appearance, PERRL ENT: Positive for: Normal ENT Inspection Neck: Positive for: Normal, Painless ROM Cardiovascular/Chest: Positive for: Regular Rate, Rhythm Respiratory: Positive for: CNT, Normal Breath Sounds Gastrointestinal/Abdominal: Positive for: Normal Exam, Bowel Sounds, Soft Back: Positive for: Normal Inspection Extremity: Positive for: Normal ROM Neurologic/Psych: Positive for: Alert, Oriented - Laboratory Results Result Diagrams: 12/16/16 09:28 12/16/16 09:28 - ECG O2 Sat by Pulse Oximetry: 99 Medical Decision Making Medical Decision Making: patient was seen by social worker psychiatric Sierra Humphrey. Has discussed case with Dr. Singh and feels that patient is at baseline with regards to his behavior. Medical eval done. Patient to be discharged. Disposition - Clinical Impression Clinical Impression: Substance induced mood disorder, Agitation - Patient ED Disposition Is Patient to be Admitted: No Doctor Will See Patient In The: Office Counseled Patient/Family Regarding: Diagnosis, Need For Followup - Disposition Referrals: [facility] [Outside] [facility] [Outside] Replaced By [facility] [Outside] Disposition: Routine/Home Disposition Time: 11:25 Condition: IMPROVED - POA Present On Arrival: None
== END 2016-12-16 12:50 | disposition home or self-care (01) ==
LOC: MERGE 08:29 → H.ER 08:29
DX: F19.94 Other psychoactive substance use, unspecified with psychoactive substance-induced mood disorder (principal); R45.1 Restlessness and agitation

== ENCOUNTER 2017-04-20 12:46 | Observation (INO) | payer MEDICAID ==
[2017-04-20 12:46] VITALS: BMI 25.8
--- NOTE | 2017-04-20 13:43 | ED PDOC ---
HPI: Psych/Substance Abuse Chief Complaint (Provider): Anxiety Attack History Per: Patient History/Exam Limitations: no limitations Onset/Duration Of Symptoms: Intermittent Episodes, Persistent Current Symptoms Are (Timing): Still Present Suicide/Self Injury Attempted (Context): None Modifying Factor(s): None Severity: Moderate Pain Scale Rating Of: 0 Associated Symptoms: Anxiety, Agitation Involuntary Hold By: None <Trang Bello - Last Filed: 04/20/17 16:59> <Pratima King - Last Filed: 04/20/17 17:14> Time Seen by Provider: 04/20/17 13:42 Chief Complaint (Nursing): Anxiety Supervising Attending Note - Supervising Attending Note The Documented history was done by the: Physician Slice Cutting Machine Operator The documented physical exam was done by the: Physician Slice Cutting Machine Operator The documented procedures were done by the: Physician Slice Cutting Machine Operator - Attestation: I have personally seen and examined this patient.: Yes I have fully participated in the care of the patient.: Yes I have reviewed all pertinent clinical information, including history, physical exam and plan: Yes <Pratima King - Last Filed: 04/20/17 17:14> Past Medical History Vital Signs: Last Vital Signs Temp 97.0 F L 04/20/17 12:50 Pulse 106 H 04/20/17 13:38 Resp 18 04/20/17 13:38 BP 137/90 04/20/17 13:38 Pulse Ox 100 04/20/17 13:38 - Medical History PMH: Anxiety, Depression Denies: Diabetes, Hepatitis, HIV, HTN, Chronic Kidney Disease, Seizures, Sexually Transmitted Disease - Surgical History Surgical History: No Surg Hx - Family History Family History: States: Unknown Family Hx - Living Arrangements Living Arrangements: With Family - Social History Current smoker - smoking cessation education provided: Yes (5-10 cigarettes/day) Alcohol: Other (Drinks 1 pint of alchohol every other day) Drugs: Cannabis <Trang Bello - Last Filed: 04/20/17 16:59> Vital Signs: Last Vital Signs Temp 98.3 F 04/20/17 16:53 Pulse 109 H 04/20/17 16:53 Resp 18 04/20/17 16:53 BP 152/100 H 04/20/17 16:53 Pulse Ox 100 04/20/17 17:00 <Pratima King - Last Filed: 04/20/17 17:14> - Home Medications Home Medications: Ambulatory Orders Medication Instructions Recorded QUEtiapine [Seroquel] 25 mg PO HS tab 12/02/16 No Known Home Med 12/15/16 - Allergies Allergies/Adverse Reactions: Allergies Allergy/AdvReac Type Severity Reaction Status Date / Time No Known Allergies Allergy Verified 11/22/16 17:14 Review of Systems Constitutional: Negative for: Fever, Chills, Sweats Cardiovascular: Positive for: Palpitations. Negative for: Chest Pain, Light Headedness Respiratory: Negative for: Cough, Wheezing Gastrointestinal: Negative for: Nausea, Vomiting Psych: Positive for: Anxiety. Negative for: Depression, Psychosis, Suicidal ideation <Trang Bello - Last Filed: 04/20/17 16:59> Physical Exam - Reviewed Vital Signs Reviewed: Yes - Physical Exam Appears: Positive for: Well, No Acute Distress. Negative for: Non-toxic Skin: Positive for: Diaphoresis Neck: Positive for: Normal Cardiovascular/Chest: Positive for: Regular Rate, Rhythm. Negative for: Murmur Respiratory: Positive for: Normal Breath Sounds Neurologic/Psych: Positive for: Alert, Mood/Affect <Trang Bello - Last Filed: 04/20/17 16:59> - Laboratory Results Result Diagrams: 04/20/17 15:50 04/20/17 15:50 - ECG O2 Sat by Pulse Oximetry: 100 - Progress ED Course And Treament: Xanax 0.5mg PO x1 Crisis Evaluation CBC, CMP, Utox, ETOH <Trang Bello - Last Filed: 04/20/17 16:59> - Laboratory Results Result Diagrams: 04/20/17 15:50 04/20/17 15:50 <Pratima King - Last Filed: 04/20/17 17:14> Medical Decision Making Medical Decision Making: Pt is a 36 yo male who presented to the ED with severe anxiety emotions, palpatations, and diaphoresis in the setting of recent multiple anxiety episodes in the year. Pt was given Xanax which resolved his anxiety and spoke with a link trainer maintenance worker and has been given an appointment at the [facility] on April 27. <Trang Bello - Last Filed: 04/20/17 16:59> ED OBSERVATION Discharge: Yes Date of observation admission: 04/20/17 Time of observation admission: 15:00 - Observation admission statement Patient is being placed in observation because:: observing for anxiety and tachycardia - Goals of Observation Goals of observation are:: resoluttion of symptoms - Progress Note Progress Note: 04/20/17 17:08 patient improved. appears able. cleared by crisis for outpatient followup <Pratima King - Last Filed: 04/20/17 17:14> Disposition - Patient ED Disposition Is Patient to be Admitted: No - Disposition Disposition: Routine/Home Disposition Time: 17:00 <rTang Bello - Last Filed: 04/20/17 16:59> - Patient ED Disposition Is Patient to be Admitted: No Doctor Will See Patient In The: Office - Disposition Disposition: Routine/Home - POA Present On Arrival: None <Pratima King - Last Filed: 04/20/17 17:14> - Clinical Impression Clinical Impression: Anxiety disorder, Anxiety - Disposition Condition: STABLE
[2017-04-20] MEDS ORDERED: Sodium Chloride 0.9% 1,000 ML IV STA (15:19)
[2017-04-20 15:54] LABS: BASO # 0.1 K/uL (0.0-0.2); BASO % 0.6 % (0.0-2.0); EOS % 0.1 % (0.0-4.0); HEMATOCRIT 45.7 % (35.0-51.0); LYMPH % 15.6 % (20.0-40.0); MEAN CELL VOLUME 94.9 fl (80.0-94.0); MEAN CORPUSCULAR HEMOGLOBIN 32.2 pg (27.0-31.0); MEAN CORPUSCULAR HGB CONC 33.9 g/dL (33.0-37.0); MEAN PLATELET VOLUME 8.8 fl (7.2-11.7); MONO # 1.4 K/uL (0.0-0.8); MONO % 11.1 % (0.0-10.0); NEUT # 9.3 K/uL (1.8-7.0); NEUT % 72.6 % (50.0-75.0); NRBC % 0.2 % (0.0-0.0); RED CELL DISTRIBUTION WIDTH 12.5 % (11.5-14.5); WHITE BLOOD COUNT 12.8 K/uL (4.8-10.8)
[2017-04-20 16:06] LABS: ALB/GLOB RATIO 1.6 (1.0-2.1); ALCOHOL SERUM < 10 mg/dl (0-10); ALKALINE PHOSPHATASE 77 U/L (38-126); ALT/SGPT 59 U/L (21-72); AST/SGOT 75 U/L (17-59); BILIRUBIN,TOTAL 1.3 mg/dl (0.2-1.3); BLOOD UREA NITROGEN 15 mg/dl (9-20); CALCIUM 10.6 mg/dL (8.4-10.2); CARBON DIOXIDE 26 mmol/L (22-30); CHLORIDE 102 mmol/L (98-107); GFR AFRICAN-AMERICAN > 60; GLUCOSE,RANDOM 119 mg/dL (75-110); POTASSIUM 3.9 MMOL/L (3.6-5.0); SODIUM 142 mmol/l (132-148); TOTAL PROTEIN 8.6 G/DL (6.3-8.2)
[2017-04-20 16:47] VITALS: RESP 18
[2017-04-20 16:54] VITALS: BP 152/100; PULSE 109; TEMP 98.3; O2SAT 100
== END 2017-04-20 19:38 | disposition home or self-care (01) ==
LOC: H.ER 12:46 → H.EROBSV 15:27
PROVIDERS: ADMIT Emergency Medicine; ATTEND Emergency Medicine
DX: F41.9 Anxiety disorder, unspecified (principal); Z86.59 Personal history of other mental and behavioral disorders; F17.210 Nicotine dependence, cigarettes, uncomplicated
CPT/HCPCS: 36415; 80053; 80320; 80324; 80345; 80346; 80349; 80353; 80358; 80361; 83992; 85025; 99283; G0378; J7040